=== PATIENT | female | born 1985 | race Caucasian/White ===

== ENCOUNTER 2016-12-10 23:08 | Emergency (ER) | payer SELFPAY | END 2016-12-10 23:48 | disposition home or self-care (01) | LOC: D.ER 23:08 | DX: S91.312A Laceration without foreign body, left foot, initial encounter (principal); W25.XXXA Contact with sharp glass, initial encounter; Y93.89 Activity, other specified; Y92.019 Unspecified place in single-family (private) house as the place of occurrence of the external cause; F31.89 Other bipolar disorder; F60.9 Personality disorder, unspecified; F17.200 Nicotine dependence, unspecified, uncomplicated ==

== ENCOUNTER → 2017-03-27 13:51 | Outpatient (CLI) | payer MEDICAID | END | disposition home or self-care (01) | LOC: D.RAD 13:51 | DX: R68.84 Jaw pain (principal) ==